=== PATIENT | female | born 1960 | race Hispanic/Latino ===

== ENCOUNTER 2018-06-03 10:42 | Outpatient (CLI) | payer OTHER ==
--- NOTE | 2018-06-03 12:11 | Magnetic Resonance Report ---
MRI BRAIN WITHOUT CONTRAST: 06/03/18 10:42:00 CLINICAL: Migraines, forgetfulness and tingling sensations. TECHNIQUE: Axial diffusion, T1, T2, gradient echo T2*, coronal and axial FLAIR and sagittal T1 sequences on a 1.5 Cassi magnet. FINDINGS: The ventricles and sulci are normal for age. No restricted diffusion. Mild bilateral multifocal white matter hyperintensities on FLAIR and T2. No mass or mass effect. No hemorrhage, edema or extra-axial collection. Normal pituitary and optic chiasm. The brainstem and cerebellum are normal. Intact vascular flow voids. Normal sinuses. The orbits, and soft tissues are normal. Normal calvarium and skull base. IMPRESSION: Mild nonspecific multifocal white matter hyperintensities FLAIR and T2. The study is otherwise normal.
== END 2018-06-03 10:43 | disposition home or self-care (01) ==
LOC: MRI 10:42
PROVIDERS: ATTEND Family Medicine Adult Medicine
DX: R90.82 White matter disease, unspecified (principal); G43.909 Migraine, unspecified, not intractable, without status migrainosus; R20.0 Anesthesia of skin
CPT/HCPCS: 70551

== ENCOUNTER 2021-06-12 10:36 | Outpatient (CLI) | payer OTHER ==
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
== END 2021-06-12 10:37 | disposition home or self-care (01) ==
LOC: CT 10:36
PROVIDERS: ATTEND Physician Assistant
DX: R51.9 Headache, unspecified (principal)
CPT/HCPCS: 70450